=== PATIENT | female | born 1995 | race Caucasian/White ===

== ENCOUNTER 2023-07-14 08:04 | Outpatient (CLI) | payer OTHER ==
--- NOTE | 2023-07-15 16:19 | Ultrasound Report ---
ULTRASOUND OF RIGHT AXILLA: 07/14/2023 CLINICAL: Palpable right axilla lump. No prior exams were available for comparison. Color flow ultrasound of the right axilla was performed on the areas of interest. Cordova scale images of the real-time examination were reviewed. No abnormality which corresponds with the palpable abnormality is seen. IMPRESSION: NEGATIVE There is no sonographic evidence of malignancy. There is no abnormality seen in the right axilla to correspond with the area of clinical concern and palpable abnormality in the right axilla, however, clinical followup is recommended. This exam was interpreted at Station ID: [id number]. Electronically Signed By: Sunny Joshi M.D. acr/:07/14/2023 08:44:12 Ultrasound BI-RADS: 1 Negative BI-RADS CATEGORY: (1) - 1 Unspecified - other recall n/a LATERALITY: (B)
== END 2023-07-14 08:05 | disposition home or self-care (01) ==
LOC: DI 08:04
PROVIDERS: ATTEND Physician Assistant
DX: R22.2 Localized swelling, mass and lump, trunk (principal)